=== PATIENT | male | born 1950 | race Caucasian/White ===

== ENCOUNTER 2021-03-10 08:28 | Outpatient (REF) | payer OTHER, SELFPAY ==
[2021-03-10 11:07] LABS: Hematocrit 47.9 % (42-52); Hemoglobin 15.8 g/dl (14.0-18.0); Mean Corpuscular Hemoglobin 30.2 pg (27.0-33.0); Mean Corpuscular Volume 91.4 fL (80-98); Mean Platelet Volume 10.4 fL (9.4-12.4); Platelet Count 314 X10*3/uL (160-400); Red Blood Count 5.24 X10*6/uL (4.60-5.80); Red Cell Distribution Width 12.7 % (11.0-16.0)
[2021-03-10 11:34] LABS: Glucose Urine UA NEG (NEG); Leukocyte Esterase Urine 3+ (NEG); Nitrite Urine NEG (NEG); Urine Blood 1+ (NEG); Urine Ketones NEG (NEG); Urine Protein TRACE MG/DL (NEG-TRACE)
[2021-03-10 11:38] LABS: Appearance Urine CLOUDY; Color Urine YELLOW
[2021-03-10 11:55] LABS: Alanine Aminotransferase 24 U/L (0-40); Albumin Level 4.7 g/dL (3.5-5.0); Alkaline Phosphatase 88 U/L (39-117); Anion Gap 15 (12-20); Aspartate Amino Transferase 24 U/L (5-37); Bilirubin Direct 0.2 mg/dL (0.0-0.5); Bilirubin Total 0.5 mg/dL (0.0-1.0); Blood Urea Nitrogen 19 mg/dL (9-16); Calcium 9.9 mg/dL (8.4-10.2); Carbon Dioxide 24 mmol/L (22-29); Chloride 106 mmol/L (96-108); Cholesterol 205 mg/dL; Estimated Glomerular Filt Rate > 60; Glucose Random 106 mg/dL (60-115); HDL Cholesterol 83 mg/dL; LDL Cholesterol Calculated 109 mg/dl; Sodium 140 mmol/L (135-145); Total Protein 7.3 g/dL (6.5-8.0); Triglycerides 65 mg/dL
[2021-03-10 12:04] LABS: Thyroid Stimulating Hormone 0.47 uIU/mL (0.32-4.0)
[2021-03-10 12:06] LABS: Bacteria Urine 2+ /LPF; RBC Urine 0-2 /HPF (0); WBC Urine TNTC /HPF (0-4)
[2021-03-14 20:37] LABS: Vitamin D 25-OH, D2 <4 ng/mL; Vitamin D 25-OH, D3 33 ng/mL; Vitamin D 25-OH, Total 33 ng/mL (30-100)
== END 2021-03-10 08:29 | disposition home or self-care (01) ==
LOC: HO.WFDLDS 08:28
PROVIDERS: PCP Family Medicine; Visit Provider Internal Medicine
DX: I73.9 Peripheral vascular disease, unspecified (principal)
CPT/HCPCS: 36415; 80048; 80061; 80076; 81001; 81003; 82306; 84443; 85027

== ENCOUNTER 2021-03-21 18:54 | Outpatient (REF) | payer OTHER, SELFPAY ==
[2021-03-21 19:26] LABS: Glucose Urine UA NEG (NEG); Leukocyte Esterase Urine 3+ (NEG); Nitrite Urine NEG (NEG); Urine Blood 3+ (NEG); Urine Ketones NEG (NEG); Urine Protein 1+ MG/DL (NEG-TRACE)
[2021-03-21 19:27] LABS: Appearance Urine CLOUDY; Color Urine YELLOW
[2021-03-21 19:31] LABS: Bacteria Urine TRACE /LPF; Mucus Urine TRACE /LPF; RBC Urine 50-75 /HPF (0); Squamous Epithelial Cell Urine TRACE /LPF; WBC Urine TNTC /HPF (0-4)
== END 2021-03-21 18:55 | disposition home or self-care (01) ==
LOC: HO.LNP 18:54
PROVIDERS: Visit Provider Family Medicine
DX: Z00.00 Encounter for general adult medical examination without abnormal findings (principal); N39.0 Urinary tract infection, site not specified
CPT/HCPCS: 81001; 81003; 87086; 87088; 87186

== ENCOUNTER → 2021-06-30 14:10 | Outpatient (BNVA) | payer OTHER, SELFPAY | PROVIDERS: PCP Family Medicine; Referring Provider Family Medicine; Visit Provider Nurse Practitioner Family ==

== ENCOUNTER 2021-09-07 08:48 | Day surgery (SDC) | payer OTHER, SELFPAY ==
[2021-09-01 09:06] VITALS: BMI 20.9
--- NOTE | 2021-09-07 09:28 | P.CONAN_ITS ---
HPI - Anesthesia Eval Consult details Narrative: 70 M for colonoscopy [facility] Active Problems Active Problems: All Active Problems (Updated 09/01/21 @ 09:05 by Sonya Dean RN) BPH with urinary obstruction (Acute) Laboratory examination ordered as part of a routine general medical examination (Acute) Peripheral arterial disease (Acute) Adult general medical exam (Acute) Screening for prostate cancer (Acute) Screening for colon cancer (Acute) UTI (urinary tract infection) (Acute) Past Medical History Medical History (Updated 09/01/21 @ 09:05 by Sonya Dean RN) BPH with urinary obstruction Constipation COVID-19 vaccine series completed Hydronephrosis Urinary retention UTI (urinary tract infection) Family History Family history of problems with anesthesia: No Surgical History Surgical History (Updated 09/01/21 @ 09:05 by Sonya Dean RN) No pertinent past surgical history History of Problems with Anesthesia: No Social History Social History Housing: Apartment Are you a primary acute care nurse practitioner to a significant other at home: No Do you presently have visiting nurse or other home services: No (friend Indra helps with medical appointments and care, etc.) Alcohol intake: never Patient Tobacco Use Status: Never used Tobacco Use of substances other than those prescribed or required for medical reasons: No Have you been hit, kicked, punched, or otherwise hurt by someone within the past year? If so, by whom?: No Are you DNR?: No Advance Directives: No Advance Directives Information Provided: Yes (informational brochure mailed) Advance Directives on File: No Recently lost weight without trying: No Eating poorly because of decreased appetite: No Nutrition Risks: No Nutritional Risk Poor oral hygiene: No service: No Current occupational status: disabled Meds Allergies Allergy/AdvReac Type Severity Reaction Status Date / Time penicillin V Allergy Mild Rash Verified 06/30/21 14:24 Home Medications Medication Instructions Recorded Confirmed Last Taken Type yhtoggsc-txlcgkgu-wdqrr acid 400 1 tab PO DAILY 02/08/21 09/01/21 Unknown History mcg-vit K 20 mcg-lycop 300 mcg tablet (Men's Multivitamin) Exam Exam Date and Time: September 07, 2021 0928 Height,Weight and Vital Signs: Height 5 ft 5 in Weight 57.153 kg Airway Mallampati Class: III TM Dist: >3cm Neck ROM: Full Loose/Missing/Broken Teeth: Yes (Chipped teeth . ) Heart: rrr Lungs: bl breath sounds Assessment and Plan Final Anesthetic Review Family History of Problems with Anesthesia: No History of Problems with Anesthesia: No NPO: Yes ASA Class: II Patient Risk: Intermediate Procedure Risk: Intermediate Anesthetic Plan Anesthetic Plan: MAC: Disposition: Standard PACU
[2021-09-07 09:35] VITALS: BP 163/64; PULSE 88; RESP 18; TEMP 36.9; O2SAT 98
--- NOTE | 2021-09-07 09:37 | MHC.SHP ---
Pre-Procedural Eval Section A Date of Service: 09/07/21 Section B Chief Complaint: Screening Relevant Family History (Specify if Yes): No Relevant Social History: None Present Medications: see Short Stay Collaborative assessment (BPH with urinary obstruction Constipation COVID-19 vaccine series completed Hydronephrosis Urinary retention UTI (urinary tract infection)) Medical History: No relevant PMH History of Previous Operations: No relevant previous surgery Allergies: Allergies Allergy/AdvReac Type Severity Reaction Status Date / Time penicillin V Allergy Mild Rash Verified 06/30/21 14:24 Review of Systems Sugical H&P ROS: Negative: Constitution, Cardiovascular, Respiratory, Neurological, Psychiatric, Hem-Onc, Allergic/Immunologic, Gastrointestinal, Genitourinary, Musculoskeletal, Integumentary, Endocrine and Eyes/Ears/Nose/Throat Exam Surgical H&P Exam: Normal: HEENT, Normal: Heart, Normal: Lungs, Normal: Extremities, Normal: Abdomen, Normal: Skin and Normal: Neurological Plan Diagnosis/Plan: Unchanged I have reviewed the history and physical and performed a pertinent physical examination on my patient. No changes have occurred unless specified.
--- NOTE | 2021-09-07 10:41 | P.BOP_ITS ---
Brief Operative Note Date of Service: 09/07/21 Pre-op diagnosis: screening Post-op diagnosis: same Procedure: see op note Surgeon: Nazia Escobar MD Anesthesia: MAC Was an Auto Claim Representative used for this Procedure?: No Estimated blood loss (mL): 0 Condition: stable Disposition: PACU
--- NOTE | 2021-09-07 10:41 | P.OP_ITS ---
Operative Note Operative Note Date of Service: 09/07/21 Narrative: Operative Information Procedure Description: Colonoscopy COLONOSCOPY Instrument: Olympus variable stiffness adult scope 190L Colonoscopy Monitoring: Vital signs and clinical assessment, continuous EKG monitoring, Pulse oximetry, Carbon Dioxide monitoring and blood pressure monitoring were done throughout the procedure. Colon withdrawal time was 12 minutes. Procedure: The patient was placed in the left lateral decubitis position and pre-procedure medications were administered. After a digital rectal examination of the ano-rectum, the video colonoscope was inserted into the rectum and advanced through the colon to the cecum/TI. The colonoscope was slowly withdrawn in a retrograde panoramic fashion and the colon mucosa was carefully examined including a retroflexed view of the rectum. Findings and interventions are described below. Procedure Difficulty: easy Findings: Terminal Ileum-normal Cecum: microbscesses and edema with erythema around the appendiceal orifice, pinch bx taken. 4-5 mm sessile polyp removed with forceps. 10-12 mm sessile polyp raised with ORISE and then removed with cold snare, x 2 clips applied for hemostasis Ascending Colon: normal Transverse Colon -normal Descending Colon:normal Sigmoid Colon: 10 mm sessile polyp removed with cold snare and x1 clip applied for hemostasis Rectum: Retroflexion with moderate sized internal hemorrhoids, grade I Anorectum - normal Colon preparation: [place] Bowel Preparation Scale Right colon; 2 Transverse colon: 3 Left colon; 3 (0 = Unprepared colon segment with mucosa not seen due to solid stool that cannot be cleared. 1 = Portion of mucosa of the colon segment seen, but other areas of the colon segment not well seen due to staining, residual stool and/or opaque liquid. 2 = Minor amount of residual staining, small fragments of stool and/or opaque liquid, but mucosa of colon segment seen well. 3 = Entire mucosa of colon segment seen well with no residual staining, small fragments of stool or opaque liquid) Impression and Post Procedure Diagnosis: localized colitis polyps internal hemorrhoids Plan: High fiber diet leaflet Avoid straining at stool, epsom salts and sitz bath, anusol supps or cream Repeat Colonoscopy in 3-5 years due to polyps or earlier if clinically indicated Above findings were reviewed with the patient and relevant handouts were provided if indicated.
[2021-09-07] MEDS: Lactated Ringers 1,000 ML 80 ML IVCONT (11:00)
[2021-09-07 11:45] VITALS: BP 89/45; PULSE 63; RESP 13; TEMP 36.1; O2SAT 99
[2021-09-07 12:00] VITALS: BP 100/49; PULSE 63; RESP 16; O2SAT 99
[2021-09-07 12:15] VITALS: BP 122/58; PULSE 68; RESP 18; TEMP 36.1; O2SAT 99
== END 2021-09-07 12:52 | disposition home or self-care (01) ==
PROVIDERS: PCP Internal Medicine; Visit Provider Internal Medicine Gastroenterology
PROC: 0DJD8ZZ Inspection of Lower Intestinal Tract, Via Natural or Artificial Opening Endoscopic (ICD-10-PCS; CPT 45378; principal; 2021-09-07 10:40)
DX: Z12.11 Encounter for screening for malignant neoplasm of colon (principal); D12.0 Benign neoplasm of cecum; D12.5 Benign neoplasm of sigmoid colon; K52.89 Other specified noninfective gastroenteritis and colitis; K64.0 First degree hemorrhoids; Z88.0 Allergy status to penicillin; K59.00 Constipation, unspecified
CPT/HCPCS: 45385; 45380; 45381; 88305; J2250

== ENCOUNTER → 2021-09-20 10:23 | Outpatient (BNVA) | payer OTHER, SELFPAY | PROVIDERS: PCP Family Medicine; Referring Provider Family Medicine; Visit Provider Nurse Practitioner Family ==

== ENCOUNTER 2023-10-22 10:50 | Outpatient (AMB) | payer MEDICARE, SELFPAY ==
[2023-10-22 11:00] VITALS: BP 120/54; PULSE 63; O2SAT 100; BMI 18.6
--- NOTE | 2023-10-22 11:00 | MHC.PC.OV ---
Vital Signs 10/22/23 11:00 Height 5 ft 5 in Weight 111 lb 8 oz BMI 18.6 BP 120/54 L Blood Pressure Location Rt brachial Position Sitting Pulse 63 Pulse Source Pulse Oximeter Pulse Oximetry (%) 100 Oxygen Delivery Method Room Air Intake Visit Reasons: Physical exam Intake Note: Patient is here for his physical today. Allergies penicillin V Allergy (Mild, Verified 10/22/23 11:01) Rash Medication List - Last Reconciled 10/22/23 by John Dumont MD elqqcief-vxp-[id number]-vit K-lycop 400-20-300 mcg (Men's Multivitamin) 1 tab PO DAILY Tobacco use date assessed: 10/22/23 Fall risk assessment: No Falls in past year Last assessed Fall Risk: 10/22/23 Dental Screening Dental Screen Date: 10/22/23 Did you have a dental visit in the last 12 months?: No Did you have a dental problem in the last 6 months where you did not have access to dental care?: No Was dental information given to patient?: Patient declined HPI Physical exam HPI Details 72-year-old?male?with?a?history?of?urinary?retention,?colitis?and?tubular?adenoma?and?peripheral?vascular?disease, presents?for?a?complete?physical?exam. No?recent?labs?to?review. He does not see a vascular specialist for his peripheral vascular disease. They deny any symptoms today. They report he climbs two hundred steps a day. They note he has always been a thin person. They deny any breathing difficulties. [facility] Medical History (Reviewed 10/22/23 @ 11:03 by Brittnee Leigh [facility]) Tubular adenoma Colitis COVID-19 vaccine series completed UTI (urinary tract infection) BPH with urinary obstruction Hydronephrosis Constipation Urinary retention Surgical History (Updated 09/20/21 @ 10:32 by Geetha Bennett) Hx of colonoscopy No pertinent past surgical history Social History Housing: Apartment Are you a primary animal care service worker to a significant other at home: No Do you presently have visiting nurse or other home services: No (friend Indra helps with medical appointments and care, etc.) Alcohol intake: never Patient Tobacco Use Status: Never used Tobacco e-Cigarette/Vaping Use: Never Used service: No Current occupational status: disabled Cognitive needs: No Hearing needs: No Vision needs: No Questionnaire PHQ-9 Over the last 2 weeks, how often have you been bothered by any of the following problems? 1. Little interest or pleasure in doing things: not at all 2. Feeling down, depressed, or hopeless: not at all 3. Trouble falling or staying asleep, or sleeping too much: not at all 4. Feeling tired or having little energy: not at all 5. Poor appetite or overeating: not at all 6. Feeling bad about yourself - or that you are a failure or have let yourself or your family down: not at all 7. Trouble concentrating on things, such as reading the newspaper or watching television: not at all 8. Moving or speaking so slowly that other people could have noticed. Or the opposite - being so fidgety or restless that you have been moving around a lot more than usual: not at all 9. Thoughts that you would be better off or of hurting yourself in some way: not at all Total score: 0 Source: Developed by Drs. Luis Felipe Montoya, Leny Nguyen, Ralph Ribeiro and colleagues, with an educational stacie from [employer]. Thrive Questionnaire Date Thrive assessed: 03/16/21 I am a: Patient What is your living situation today?: I have a steady place to live Within the past 12 months, did the food you bought not last and you didn't have the money to get more?: Never true Within the past 12 months, did you worry whether your food would run out before you got money to buy more?: Never true Do you have trouble paying for medicines?: No Do you have trouble getting transportation to medical appointments?: No Do you have trouble paying your heating and electricity bill?: No Do you have trouble taking care of your child, family member or friend?: No Do you have trouble with day-to-day activities such as bathing, preparing meals, shopping, managing finances, etc.?: No Are you currently unemployed and looking for a job?: No Are you interested in more education?: No THRIVE Score: 0 AUDIT C Alcohol Use Questionnaire (AUDIT-C) 1. How often do you have a drink containing alcohol?: Never 3. How often do you have six or more drinks on one occasion?: Never Total Score: 0 DYANA-7 AMB Questionnaire DYANA-7 Date DYANA - 7 assessed: 10/22/23 Feeling nervous, anxious, or on edge: 0 = Not at all Not being able to stop or control worryin = Not at all Worrying too much about different things: 0 = Not at all Trouble relaxin = Not at all Being so restless that it is hard to sit still: 0 = Not at all Becoming easily annoyed or irritable: 0 = Not at all Feeling afraid as if something awful might happen: 0 = Not at all Total DYANA-7 score (0-4 normal; 5-9 mild; 10-14 moderate; 15-21 severe): 0 Source: Developed by Drs. Luis Felipe Montoya, Leny Nguyen, Ralph Ribeiro and colleagues, with an educational stacie from [employer]. Review of Systems Const Denies chills, Denies fatigue, Denies fever(s), Denies headache(s) and Denies weakness Eyes Denies change in vision ENT Denies dizziness, Denies headache(s), Denies hearing loss, Denies nasal congestion, Denies sinus pain, Denies sinus pressure and Denies sore throat Card Denies chest pain, Denies lightheadedness, Denies dyspnea and Denies other (palpitations) Resp Denies cough, Denies dyspnea and Denies wheezing GI Denies abdominal pain, Denies melena, Denies hematochezia, Denies change in bowel habits, Denies dyspepsia and Denies nausea Denies hematuria and Denies dysuria Musc Denies abnormal gait, Denies myalgias, Denies arthralgias, Denies numbness and Denies tingling Skin/Breast Denies rash, Denies unusual bruising and Denies wounds Neuro Denies abnormal gait, Denies dizziness, Denies headache(s), Denies memory loss, Denies numbness, Denies Sensory deficit (Neuro), Denies tingling and Denies weakness Psych Denies anxiety, Denies depression and Denies memory loss Endo Denies cold intolerance, Denies fatigue, Denies heat intolerance, Denies polydipsia and Denies polyuria Gallo/Lymph Denies easy bleeding and Denies easy bruising Aller/Immun Denies wheezing Physical exam (Primary Care) Vital Signs: Last Vital Signs Pulse 63 10/22/23 11:00 BP 120/54 L 10/22/23 11:00 Pulse Ox 100 10/22/23 11:00 Oxygen Delivery Method Room Air 10/22/23 11:00 BMI result Body Mass Index 18.6 Tobacco/Smoking Status: Tobacco use Status Tobacco use date assessed 10/22/23 10/22/23 11:03 Patient Tobacco Use Status Never used Tobacco 10/22/23 11:02 e-Cigarette/Vaping Use Never Used 10/22/23 11:03 PHQ-9: PHQ-9 Score PHQ-9: Total score 0 10/22/23 11:13 Thrive Assessment: Date of Thrive Assessment Date Thrive assessed 03/16/21 10/22/23 11:02 Const General: no acute distress, well developed, alert and awake Nutritional Appearance: well nourished Orientation/consciousness: patient oriented x3 HENMT Head: Yes normocephalic and Yes atraumatic Ears: hearing grossly normal bilaterally and TM's normal bilaterally General nose exam: Normal external nose present and Normal nares present Mouth: Normal oral and palatal mucosa present and moist mucous membranes Teeth and gingiva: dentition normal Throat: Yes posterior oropharynx normal Eyes General: appearance normal, both eyes and all related structures Pupils: Equal, round and reactive pupils present and Pupil accommodation reflex normal EOM: EOMs intact bilaterally Neck Neck: Yes normal visual inspection, Yes no lymphadenopathy and Yes trachea midline Thyroid: Thyroid normal Carotids: no bruits Lymphatic: no lymphadenopathy noted Chest Chest palpation & inspection: normal inspection of the chest Resp Effort & Inspection: normal respiratory effort Auscultation: clear to auscultation bilaterally Cardio Rate: regular rate Rhythm: regular rhythm Heart sounds: S1 normal heart sound present, S2 normal heart sound present, no gallops, no murmurs and no rubs Bruits: no abdominal aortic bruits and no carotid bruits GI Palpation (GI): No Abdominal aortic bruit present, Soft to palpation, nontender, No hepatosplenomegaly present and No Rebound tenderness present Auscultation: normal bowel sounds General: Yes no CVA tenderness Back/Spine/Pelvis Back: no CVA tenderness Cervical Spine: cervical ROM normal and No Cervical spine tenderness Thoracic/Lumbar Spine: thoraco-lumbar ROM normal, No pain with thoraco-lumbar ROM, No thoracic spinal tenderness and No lumbar spinal tenderness Skin Lesions: no lesions Rashes: no rashes Trauma: no lacerations or abrasions Wounds: no wounds Nails: normal Neuro General: patient oriented x3 Cranial nerves: Yes Equal, round and reactive pupils present Cognition (Neuro): normal cognition Gait exam (Neuro): Normal gait present Motor exam (neuro): 5/5 motor strength present throughout Sensory Exam: No Sensory deficit (Neuro) Deep tendon reflexes (DTR's): Right patellar reflex intensity grade: 2+ and Left patellar reflex intensity grade: 2+ Extrem Other: 2+ bilateral pulses General: Yes normal to inspection and No edema Psych Appearance: grossly normal Affect: normal affect Attitude: cooperative Thought process: Normal thought process present Assessment and Plan Assessment & Plan (1) Adult general medical exam: Code(s): Z00.00 - Encounter for general adult medical examination without abnormal findings Plan: 72-year-old?male?presents?for?complete?physical?exam Encouraged?healthy?diet?with?active?lifestyle?and?plenty?of?exercise Encouraged?good?sources?of?protein (2) Peripheral arterial disease: Code(s): I73.9 - Peripheral vascular disease, unspecified Plan: History?of?peripheral?vascular?disease?in?patient?chart Normal?pulses?bilaterally 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 Continue?walking.??We?can?continue?to?monitor (3) Screening for prostate cancer: Code(s): Z12.5 - Encounter for screening for malignant neoplasm of prostate Plan: Check?PSA (4) Screening for colon cancer: Code(s): Z12.11 - Encounter for screening for malignant neoplasm of colon Plan: History?of?tubular?adenoma Due?for?3?year?follow-up Referred?back?to?gastroenterology (5) Underweight: Code(s): R63.6 - Underweight Plan: Patient?has?always?been?thin. No?appetite?problems.??No?respiratory?problems. Encouraged?good?sources?of?protein?and?regular?meals. No?other?concerns?at?this?time. Orders: Orders Complete Blood Count Auto Diff Today Z00.00 - Encounter for general adult medical examination without abnormal findings Prostate Specific Antigen Scr Today Z12.5 - Encounter for screening for malignant neoplasm of prostate TSH reflex Free T4 Today Z00.00 - Encounter for general adult medical examination without abnormal findings Comprehensive [place]. Panel Fast Today Z00.00 - Encounter for general adult medical examination without abnormal findings Lipid Panel Today Z00.00 - Encounter for general adult medical examination without abnormal findings Microalbumin, Random (w Creat) Today I10 - Essential (primary) hypertension UA and rflx microscopic Today Z00.00 - Encounter for general adult medical examination without abnormal findings Referrals Gastroenterology Referral D36.9 - Benign neoplasm, unspecified site Coding Level of Care Code Est Pt Level 3 (92806) Est Pt Prev Care >65y(92226) Diagnoses Adult general medical exam Z00.00 Peripheral arterial disease I73.9 Screening for prostate cancer Z12.5 Screening for colon cancer Z12.11 Underweight R63.6
== END 2023-10-22 11:39 | disposition home or self-care (01) ==
PROVIDERS: PCP Family Medicine; Visit Provider Family Medicine
DX: Z00.00 Encounter for general adult medical examination without abnormal findings (principal); I73.9 Peripheral vascular disease, unspecified; Z12.5 Encounter for screening for malignant neoplasm of prostate; Z12.11 Encounter for screening for malignant neoplasm of colon; R63.6 Underweight
CPT/HCPCS: 99397

== ENCOUNTER 2023-10-29 07:15 | Outpatient (REF) | payer MEDICARE, SELFPAY ==
[2023-10-29 11:17] LABS: MANUAL DIFF FLAG NO
[2023-10-29 11:28] LABS: Basophils Absolute Auto 0.1 X10*3/uL (0.0-0.2); Basophils Percent Auto 0.7 % (0-2); Eosinophils Absolute Auto 0.1 X10*3/uL (0.0-0.4); Eosinophils Percent Auto 1.7 % (0-4); Hematocrit 46.1 % (42.0-52.0); Hemoglobin 15.3 g/dl (14.0-18.0); Imm Gran Abs Auto 0.04 X10*3/uL (0.00-0.03); Imm Gran Pct Auto 0.5 % (0.0-0.4); Lymphocytes Absolute Auto 1.7 X10*3/uL (1.2-4.9); Lymphocytes Percent Auto 22.5 % (20-40); Mean Corpuscular HGB Conc 33.2 g/dl (31.0-36.0); Mean Corpuscular Hemoglobin 30.2 pg (27.0-33.0); Mean Corpuscular Volume 91.1 fL (80.0-98.0); Mean Platelet Volume 10.7 fL (9.4-12.4); Monocytes Absolute Auto 0.6 X10*3/uL (0.1-1.2); Monocytes Percent Auto 8.1 % (2-11); Neutrophils Percent Auto 66.5 % (45-73); Platelet Count 273 X10*3/uL (160-400); Red Blood Count 5.06 X10*6/uL (4.60-5.80); Red Cell Distribution Width 12.9 % (11.0-16.0); White Blood Count 7.5 X10*3/uL (4.8-10.8)
[2023-10-29 11:57] LABS: Alanine Aminotransferase 22 U/L (0-40); Albumin Level 4.5 g/dL (3.5-5.0); Alkaline Phosphatase 75 U/L (39-117); Anion Gap 14 (12-20); Aspartate Amino Transferase 28 U/L (5-37); Bilirubin Total 0.7 mg/dL (0.0-1.0); Blood Urea Nitrogen 15 mg/dL (9-16); Calcium 9.6 mg/dL (8.4-10.2); Carbon Dioxide 25 mmol/L (22-29); Chloride 107 mmol/L (96-108); Cholesterol 175 mg/dL (<200); Estimated Glomerular Filt Rate > 60; Glucose Fasting 102 mg/dL (60-99); HDL Cholesterol 78 mg/dL (>40); LDL Cholesterol Calculated 86 mg/dL (<100); Sodium 142 mmol/L (135-145); Total Protein 7.4 g/dL (6.5-8.0); Triglycerides 59 mg/dL (<150)
[2023-10-29 12:04] LABS: Prostate Specific Antigen Scr 0.42 ng/mL (<0.05-4.0)
== END 2023-10-29 07:16 | disposition home or self-care (01) ==
LOC: HO.WFDLDS 07:15
PROVIDERS: Visit Provider Family Medicine
DX: Z00.00 Encounter for general adult medical examination without abnormal findings (principal); Z13.220 Encounter for screening for lipoid disorders; Z12.5 Encounter for screening for malignant neoplasm of prostate; Z13.29 Encounter for screening for other suspected endocrine disorder
CPT/HCPCS: 36415; 80053; 80061; 84153; 84443; 85025

== ENCOUNTER 2023-11-26 10:19 | Outpatient (AMB) | payer MEDICARE, SELFPAY ==
--- NOTE | 2023-11-26 10:04 | MHC.PC.OV ---
Intake Visit Reasons: f/u CPE-labs Intake Note: Patient has family member interpreting. Teacher Of The Hearing Impaired Required: Yes Teacher Of The Hearing Impaired Language: Decontamination Technician Name: family member Allergies penicillin V Allergy (Mild, Verified 11/26/23 10:07) Rash Tobacco use date assessed: 10/22/23 HPI f/u CPE-labs HPI Details 73 y/o male presents to f/u CPE-labs via telemedicine. Labs were drawn 10/29/23. Reviewed labs with pt. Elevated fasting glucose 102. Triglycerides 59. TC 175. LDL 86. HDL 78. PFSH Medical History Tubular adenoma Colitis COVID-19 vaccine series completed UTI (urinary tract infection) BPH with urinary obstruction Hydronephrosis Constipation Urinary retention Surgical History (Updated 09/20/21 @ 10:32 by Geetha Bennett) Hx of colonoscopy No pertinent past surgical history Social History Housing: Apartment Are you a primary health care liaison to a significant other at home: No Do you presently have visiting nurse or other home services: No (friend Indra helps with medical appointments and care, etc.) Alcohol intake: never Patient Tobacco Use Status: Never used Tobacco e-Cigarette/Vaping Use: Never Used service: No Current occupational status: disabled Cognitive needs: No Hearing needs: No Vision needs: No Questionnaire Thrive Questionnaire Date Thrive assessed: 03/16/21 DYANA-7 AMB Questionnaire DYANA-7 Date DYANA - 7 assessed: 10/22/23 Source: Developed by Drs. Luis Felipe Montoya, Leny Nguyen, Ralph Ribeiro and colleagues, with an educational stacie from [employer]. Physical exam (Primary Care) Tobacco/Smoking Status: Tobacco use Status Tobacco use date assessed 10/22/23 11/26/23 10:07 Patient Tobacco Use Status Never used Tobacco 11/26/23 10:07 e-Cigarette/Vaping Use Never Used 11/26/23 10:07 Thrive Assessment: Date of Thrive Assessment Date Thrive assessed 03/16/21 11/26/23 10:07 Telehealth Telehealth Location of provider rendering services: practice address Location of patient: address on file Patient Identification confirmed using: Name, : Yes Telehealth method: voice only Patient verbally consented to treatment: Yes Patient verbally consented to billing insurance company: Yes Patient informed of any privacy concerns related to visit: Yes Minutes spent on Phone/Video with Pt.: 5 Assessment and Plan Assessment & Plan (1) Elevated fasting glucose: Code(s): R73.01 - Impaired fasting glucose Plan: Mildly?elevated?fasting?glucose;?102 We?can?monitor?this?with?next?lab?work. Plan Patient's?other?lab?work?was?okay. Orders: Orders Lipid Panel Today Z00.00 - Encounter for general adult medical examination without abnormal findings Comprehensive [place]. Panel Fast Today Z00.00 - Encounter for general adult medical examination without abnormal findings Complete Blood Count Auto Diff Today Z00.00 - Encounter for general adult medical examination without abnormal findings Microalbumin, Random (w Creat) Today I10 - Essential (primary) hypertension UA and rflx microscopic Today Z00.00 - Encounter for general adult medical examination without abnormal findings TSH reflex Free T4 Today Z00.00 - Encounter for general adult medical examination without abnormal findings Hemoglobin A1c Today R73.01 - Impaired fasting glucose Coding Level of Care Code Tele Est Pt Level 2 (45154) Diagnoses Elevated fasting glucose R73.01
== END 2023-11-26 11:16 | disposition home or self-care (01) ==
PROVIDERS: PCP Family Medicine; Visit Provider Family Medicine
DX: R73.01 Impaired fasting glucose (principal)
CPT/HCPCS: G2012

== ENCOUNTER 2024-01-24 14:09 | Outpatient (AMB) | payer MEDICARE, SELFPAY ==
--- NOTE | 2024-01-24 14:14 | MHC.OFFVIS ---
Vital Signs 01/24/24 14:22 Height 5 ft 5 in Weight 114 lb BMI 19.0 BP 147/74 H Blood Pressure Location Lt brachial Position Sitting Pulse 65 Intake Visit Reasons: Colonoscopy screening Intake Note: Patient is seen in office for colonoscopy screening. Pt c/o: denies any concerns at the time of visit Voltmeter Operator Required: Yes Voltmeter Operator Language: Guinean Information Interpreted: non-clinical & clinical Accompanied by: Other Relationship Allergies penicillin V Allergy (Mild, Verified 01/24/24 14:18) Rash HPI HPI Colonoscopy screening: Details: LAST VISIT: 09/20/2021 Colitis Mild active colitis noted in the cecum. Patient reports that occasionally he will have abdominal bloating and discomfort if he is constipated. Will start him on docusate sodium and will send a script for 7 day treatment with metronidazole. Patient was never treated after colonoscopy. Tubular adenoma Tubular adenoma found on colonoscopy without high-grade dysplasia or carcinoma. Patient is ordered in needs his blood relatives to go for early colorectal screening. Patient denies any melena, hematochezia, unintentional weight loss or ribbon like stools. He will need to return for colorectal screening in 3 years Abdominal discomfort Occasional abdominal discomfort if no bowel movement. Patient denies diarrhea blood in his stools. Discussed with him to eat bland diet. Mild colitis seen on colonoscopy. Script for metronidazole sent for patient. Patient will call me if his symptoms will get worse. Diet plan discussed with him. Given to patient in [place]an. I will see him in 2 months to re-evaluate. Patient is agreeable to this plan and verbalizes understanding of instructions. He was given the opportunity to ask questions and all questions answered. ? Thank you for allowing me to participate in his care Plan Medications New metronidazole [place] angel por la manana y otro antes de acostarse yesenia 7 nunn. 500 mg PO BID 7 days 14 tabs 0RF docusate sodium deric farheen capsula cada noche 100 mg PO BEDTIME 30 caps 3RF K59.00 Discontinued sulfamethoxazole-trimethoprim 800-160 mg (Bactrim DS) Discontinued Reason: Patient Completed Course 1 tab PO Q12H 5 days 10 tabs 0RF bisacodyl (Dulcolax (bisacodyl)) take 2 tabs at noon the day before your colonoscopy Discontinued Reason: Patient Completed Course 10 mg (2 x 5 mg) PO ONCE 1 day 2 tabs 0RF Z12.11 polyethylene glycol 3350 (Miralax) As directed by gastroenterology department at [facility] Discontinued Reason: Patient Completed Course 238 grams PO ONCE 238 grams 0RF Z12.11 TODAY'S VISIT Patient is here today for follow-up and to discuss going for colonoscopy. Last colonoscopy was in August of 2021 and patient was recommended to return in 3 years for colonoscopy. Tubular adenoma found without high-grade dysplasia or carcinoma. Patient denies any issues with colonoscopy or with anesthesia. Currently patient denies any GI concerning symptoms. Reports that he is moving his bowels without any issues. Patient denies any dyspepsia, dysphagia or odynophagia. No history of sleep apnea. Not on any anticoagulation medication. Patient denies any melena, hematochezia, unintentional weight loss or ribbon like stools. [facility] Medical History Tubular adenoma Colitis COVID-19 vaccine series completed UTI (urinary tract infection) BPH with urinary obstruction Hydronephrosis Constipation Urinary retention Surgical History (Updated 09/20/21 @ 10:32 by Geetha Bennett) Hx of colonoscopy No pertinent past surgical history Social History Housing: Apartment Are you a primary healthcare manager to a significant other at home: No Do you presently have visiting nurse or other home services: No (friend Indra helps with medical appointments and care, etc.) Alcohol intake: never Patient Tobacco Use Status: Never used Tobacco e-Cigarette/Vaping Use: Never Used service: No Current occupational status: disabled Cognitive needs: No Hearing needs: No Vision needs: No Review of Systems Const Denies weight gain and Denies weight loss ENT Reports no additional complaints, Denies dysphagia and Denies odynophagia Card Reports no additional complaints Resp Reports no additional complaints GI Denies abdominal pain, Denies belching, Denies melena, Denies bloating, Denies change in bowel habits, Denies dysphagia, Denies excessive flatus, Denies dyspepsia, Denies heartburn, Denies diarrhea, Denies loose stools, Denies nausea, Denies odynophagia and Denies vomiting Reports no additional complaints Musc Reports no additional complaints Neuro Reports no additional complaints Psych Reports no additional complaints Endo Reports no additional complaints Physical Exam Vital Signs: Last Vital Signs Pulse 65 01/24/24 14:22 BP 147/74 H 01/24/24 14:22 BMI result Body Mass Index 19.0 Const General: healthy appearing, no acute distress and well developed Nutritional Appearance: well nourished Orientation/consciousness: patient oriented x3 Resp Effort & Inspection: normal respiratory effort, able to speak in complete sentences, no tracheal deviation and symmetric chest movement Auscultation: clear to auscultation bilaterally Cardio Rate: regular rate GI Inspection: Yes normal to inspection and No distended Palpation (GI): Soft to palpation, not firm, nontender and No hepatosplenomegaly present Auscultation: normal bowel sounds General: Yes no CVA tenderness Back/Spine/Pelvis Back: no CVA tenderness Skin General skin exam: elasticity normal, turgor normal and dry skin Neuro General: patient oriented x3 Psych Appearance: grossly normal Mental Status: mental status grossly normal Assessment & Plan Assessment & Plan (1) Tubular adenoma: Code(s): D36.9 - Benign neoplasm, unspecified site Category: Medical (2) Screening for colon cancer: Code(s): Z12.11 - Encounter for screening for malignant neoplasm of colon Category: Medical Plan Patient denies any GI concerning symptoms today. Patient denies any issues with anesthesia in the past. No history of sleep apnea. Not on any anticoagulation medication. Patient had no issues with prep last colonoscopy. Patient is underway he was encouraged to try protein shakes and high-calorie meals. What to expect before during and after procedure discussed with patient. Discussed with him the importance of clear liquid diet and good bowel prep. Patient denies any cardiac or respiratory symptoms. I will see him after the procedure, sooner on as needed basis. He is agreeable to this plan and verbalizes understanding of instructions. He was given the opportunity to ask questions and all questions answered. Thank you allowing me to participate in his care Medications: New polyethylene glycol 3350 (Miralax) As directed by gastroenterology department at [facility] 238 grams PO ONCE 238 grams 0RF Z12.11 - Encounter for screening for malignant neoplasm of colon bisacodyl (Dulcolax (bisacodyl)) take 4 tabs at noon the day before your colonoscopy 20 mg (4 x 5 mg) PO ONCE 4 tabs 0RF 1 day Z12.11 - Encounter for screening for malignant neoplasm of colon Coding Level of Care Code Est Pt Level 3 (35441) Diagnoses Tubular adenoma D36.9 Screening for colon cancer Z12.11 Time Spent (min) 30 Comment 20 minutes spent with patient and additional 10 minutes spent reviewing his records
[2024-01-24 14:22] VITALS: BP 147/74; PULSE 65; BMI 19.0
== END 2024-01-24 14:47 | disposition home or self-care (01) ==
PROVIDERS: PCP Family Medicine; Visit Provider Nurse Practitioner Family
DX: D36.9 Benign neoplasm, unspecified site (principal); Z12.11 Encounter for screening for malignant neoplasm of colon
CPT/HCPCS: 99213

== ENCOUNTER → 2024-01-24 14:09 | Outpatient (BNVA) | payer MEDICARE, SELFPAY | PROVIDERS: PCP Family Medicine; Visit Provider Nurse Practitioner Family | DX: Z01.818 Encounter for other preprocedural examination (principal); Z86.010 Personal history of colon polyps | CPT/HCPCS: 99212 ==

== ENCOUNTER 2024-06-09 06:41 | Day surgery (SDC) | payer OTHER, SELFPAY ==
[2024-06-05 15:23] VITALS: BMI 19.0
--- NOTE | 2024-06-08 12:58 | HO.ANESPROP2 ---
HPI - Anesthesia Eval Consult details Narrative: 73yo M for Colonoscopy PMF Active Problems Active Problems: All Active Problems Elevated fasting glucose (Acute) Underweight (Acute) Tubular adenoma (Acute) Colitis (Acute) BPH with urinary obstruction (Acute) Laboratory examination ordered as part of a routine general medical examination (Acute) Peripheral arterial disease (Acute) Adult general medical exam (Acute) Screening for prostate cancer (Acute) Screening for colon cancer (Acute) UTI (urinary tract infection) (Acute) Past Medical History Medical History Tubular adenoma Colitis COVID-19 vaccine series completed UTI (urinary tract infection) BPH with urinary obstruction Hydronephrosis Constipation Urinary retention Family History Family history of problems with anesthesia: No Surgical History Surgical History Hx of colonoscopy No pertinent past surgical history History of Problems with Anesthesia: No Social History Social History Housing: Apartment Are you a primary child day care provider to a significant other at home: No Do you presently have visiting nurse or other home services: No (friend Indra helps with medical appointments and care, etc.) Alcohol intake: never Patient Tobacco Use Status: Never used Tobacco e-Cigarette/Vaping Use: Never Used service: No Current occupational status: disabled Cognitive needs: No Hearing needs: No Vision needs: No Meds Allergies Allergy/AdvReac Type Severity Reaction Status Date / Time penicillin V Allergy Mild Rash Verified 01/24/24 14:18 Home Medications ?Medication ?Instructions ?Recorded ?Confirmed ?Last Taken ?Type ynunfhue-ohyhcknw-byonj acid 400 1 tab PO DAILY 02/08/21 10/22/23 Unknown History mcg-vit K 20 mcg-lycop 300 mcg tablet (Men's Multivitamin) Exam Height,Weight and Vital Signs: Height 5 ft 5 in Weight 51.71 kg Assessment and Plan Assessment Anesthesia Assessment: Chart Reviewed Final Anesthetic Review Family History of Problems with Anesthesia: No History of Problems with Anesthesia: No
--- NOTE | 2024-06-09 06:27 | MHC.SHP ---
Pre-Procedural Eval Section A - 24 Hr Update-Section A only Date of Service: 06/09/24 Section B - Complete if H&P > 30 days Chief Complaint: screening Relevant Family History (Specify if Yes): No Relevant Social History: None Present Medications: see Short Stay Collaborative assessment Medical History: Significant History (Tubular adenoma Colitis COVID-19 vaccine series completed UTI (urinary tract infection) BPH with urinary obstruction Hydronephrosis Constipation Urinary retention) History of Previous Operations: Relevant previous surgery/procedure and date(s) (Hx of colonoscopy) Allergies: Allergies Allergy/AdvReac Type Severity Reaction Status Date / Time penicillin V Allergy Mild Rash Verified 01/24/24 14:18 Review of Systems Sugical H&P ROS: Negative: Constitution, Cardiovascular, Respiratory, Neurological, Psychiatric, Hem-Onc, Allergic/Immunologic, Gastrointestinal, Genitourinary, Musculoskeletal, Integumentary, Endocrine and Eyes/Ears/Nose/Throat Exam Surgical H&P Exam: Normal: HEENT, Normal: Heart, Normal: Lungs, Normal: Extremities, Normal: Abdomen, Normal: Skin and Normal: Neurological Plan Diagnosis/Plan: Unchanged I have reviewed the history and physical and performed a pertinent physical examination on my patient. No changes have occurred unless specified. Time Spent With Patient Time: Total time managing care of this patient today ____ minutes.
[2024-06-09 07:03] VITALS: BP 153/78; PULSE 96; RESP 17; TEMP 36.9; O2SAT 98; BMI 18.5
[2024-06-09] MEDS: Lactated Ringers 1,000 ML 100 ML IVCONT (07:20)
--- NOTE | 2024-06-09 07:52 | HO.ANESPROP2 ---
[facility] Active Problems Active Problems: All Active Problems Elevated fasting glucose (Acute) Underweight (Acute) Tubular adenoma (Acute) Colitis (Acute) BPH with urinary obstruction (Acute) Laboratory examination ordered as part of a routine general medical examination (Acute) Peripheral arterial disease (Acute) Adult general medical exam (Acute) Screening for prostate cancer (Acute) Screening for colon cancer (Acute) UTI (urinary tract infection) (Acute) Past Medical History Medical History Tubular adenoma Colitis COVID-19 vaccine series completed UTI (urinary tract infection) BPH with urinary obstruction Hydronephrosis Constipation Urinary retention Functional capacity: independent ambulation Family History Family history of problems with anesthesia: No Surgical History Surgical History Hx of colonoscopy No pertinent past surgical history History of Problems with Anesthesia: No Social History Social History Housing: Apartment Are you a primary direct support professional caregiver to a significant other at home: No Do you presently have visiting nurse or other home services: No (friend Indra helps with medical appointments and care, etc.) Alcohol intake: never Patient Tobacco Use Status: Never used Tobacco e-Cigarette/Vaping Use: Never Used Have you been hit, kicked, punched, or otherwise hurt by someone within the past year? If so, by whom?: No Are you DNR?: No Advance Directives: No Advance Directives Information Provided: Yes Recently lost weight without trying: Yes How much weight loss: 2-13 pounds Nutrition Risks: No Nutritional Risk service: No Current occupational status: disabled Cognitive needs: No Hearing needs: No Vision needs: No Meds Allergies Allergy/AdvReac Type Severity Reaction Status Date / Time penicillin V Allergy Mild Rash Verified 01/24/24 14:18 Active Medications: Current Medications Lactated Ringer's (Lr) 1,000 mls @ 100 mls/hr IVCONT .Q10H RAMO Last Admin: 06/09/24 07:20 Dose: 100 mls/hr Home Medications ?Medication ?Instructions ?Recorded ?Confirmed ?Last Taken ?Type vqihjrxt-txdetvcz-rapzy acid 400 1 tab PO DAILY 02/08/21 10/22/23 Unknown History mcg-vit K 20 mcg-lycop 300 mcg tablet (Men's Multivitamin) Exam Height,Weight and Vital Signs: Height 5 ft 5 in Weight 50.33 kg Last Vital Signs Temp 98.5 F 06/09/24 07:03 Pulse 96 06/09/24 07:03 Resp 06/09/24 07:03 BP 153/78 H 06/09/24 07:03 Pulse Ox 98 06/09/24 07:03 O2 Del Method Room Air 06/09/24 07:03 Airway Mallampati Class: II TM Dist: >3cm Neck ROM: Full Heart: RRR Lungs: CTA Assessment and Plan Assessment Anesthesia Assessment: Anesthesia Plan Discussed Final Anesthetic Review Family History of Problems with Anesthesia: No History of Problems with Anesthesia: No NPO: Yes ASA Class: II Final Preanesthetic Review: Meds/Allgs Chart Reviewed, Consent Obtained/Reviewed and Anes Risks/Benef Reviewed Patient Risk: Low Procedure Risk: Low Anesthetic Plan Anesthetic Plan: MAC: Disposition: Standard PACU
--- NOTE | 2024-06-09 08:54 | P.OPN-COLO_ITS ---
Colonoscopy Operative Note Operative Note Date of Service: 06/09/24 Narrative: Operative Information Procedure Description: Colonoscopy Indication: hx of colon polyps Anesthesia: MAC COLONOSCOPY Instrument: Olympus variable stiffness pediatric scope 190L Colonoscopy Monitoring: Vital signs and clinical assessment, continuous EKG monitoring, Pulse oximetry, Carbon Dioxide monitoring and blood pressure monitoring were done throughout the procedure. Colon withdrawal time was 11 minutes. Procedure: The patient was placed in the left lateral decubitis position and pre-procedure medications were administered. After a digital rectal examination of the ano-rectum, the video colonoscope was inserted into the rectum and advanced through the colon to the cecum/TI. The colonoscope was slowly withdrawn in a retrograde panoramic fashion and the colon mucosa was carefully examined including a retroflexed view of the rectum. Findings and interventions are described below. Procedure Difficulty: moderate Findings: Terminal Ileum-normal, bx taken Cecum: granularity and few micro abscesses around cecum, bx taken Ascending Colon: x 3 sessile polyps 5-7 mm removed with cold snare, x 1 sessile polyp 4-6 mm removed with cold forceps Transverse Colon -normal Descending Colon:normal Sigmoid Colon: normal Rectum: Retroflexion with moderate large internal hemorrhoids seen, grade II Anorectum - internal hemorrhoids seen on forward view Intervention: cold forceps, cold snare Colon preparation: [place] Bowel Preparation Scale Right colon; 2 Transverse colon: 2 Left colon; 2 (0 = Unprepared colon segment with mucosa not seen due to solid stool that cannot be cleared. 1 = Portion of mucosa of the colon segment seen, but other areas of the colon segment not well seen due to staining, residual stool and/or opaque liquid. 2 = Minor amount of residual staining, small fragments of stool and/or opaque liquid, but mucosa of colon segment seen well. 3 = Entire mucosa of colon segment seen well with no residual staining, small fragments of stool or opaque liquid) Impression and Post Procedure Diagnosis: colon polyps internal hemorrhoids mild colitis, localized Plan: High fiber diet leaflet Avoid straining at stool, epsom salts and sitz bath, anusol supps or cream Repeat Colonoscopy in 3 years due to polyps or earlier if clinically indicated, might need genetic testing if more polyps found at next colonoscopy Above findings were reviewed with the patient and relevant handouts were provided if indicated.
[2024-06-09 08:58] VITALS: BP 93/38; PULSE 74; RESP 16; TEMP 36.4; O2SAT 99
[2024-06-09 09:13] VITALS: BP 127/82; PULSE 61; RESP 18; TEMP 36.4; O2SAT 98
--- NOTE | 2024-06-09 14:34 | HO.POSTANES ---
Post Anesthesia Evaluation Post Anesthesia Evaluation Date of Service: 06/09/24 Vital Signs: Vital Signs Temp Pulse Resp BP Pulse Ox O2 Del Method 06/09/24 09:13 97.5 F 61 18 127/82 98 Room Air 06/09/24 08:58 97.5 F 74 16 93/38 L 99 Room Air 06/09/24 07:03 98.5 F 96 17 153/78 H 98 Room Air Anesthesia: Monitored Mental Status: Awake Pain Control: Satisfactory Nausea/Vomiting: None Hydration: Adequate Anesthesia-Related Issues: No Anes. Related Issues
== END 2024-06-09 10:18 | disposition home or self-care (01) ==
PROVIDERS: PCP Family Medicine; Visit Provider Internal Medicine Gastroenterology
PROC: 0DJD8ZZ Inspection of Lower Intestinal Tract, Via Natural or Artificial Opening Endoscopic (ICD-10-PCS; CPT 45378; principal; 2024-06-09 08:20)
DX: Z12.11 Encounter for screening for malignant neoplasm of colon (principal); D12.2 Benign neoplasm of ascending colon; K64.1 Second degree hemorrhoids; K52.89 Other specified noninfective gastroenteritis and colitis; Z86.010 Personal history of colon polyps
CPT/HCPCS: 45385; 45380; 88305; J2704

== ENCOUNTER → 2024-06-09 06:41 | Outpatient (BNV) | payer OTHER, SELFPAY | PROVIDERS: PCP Family Medicine; Visit Provider Internal Medicine Gastroenterology | DX: Z12.11 Encounter for screening for malignant neoplasm of colon (principal); D12.2 Benign neoplasm of ascending colon; K64.8 Other hemorrhoids; K52.9 Noninfective gastroenteritis and colitis, unspecified | CPT/HCPCS: 45380; 45385 ==